=== PATIENT | male | born 1960 | race Caucasian/White ===

== ENCOUNTER 2021-04-08 00:12 | Day surgery (SDC) | payer OTHER, SELFPAY ==
[2021-03-28 10:36] VITALS: BMI 40.7
[2021-04-08 09:15] VITALS: BP 131/81; PULSE 64; RESP 18; TEMP 36.4; O2SAT 99; BMI 38.8
--- NOTE | 2021-04-08 09:38 | P.PNAN_ITS ---
Anes - Initial Pre Proc Eval Procedure: Operation Date: 04/08/21 10:30 Proposed Procedures p Screening Colonoscopy - Shree Aly MD Date/Time: 04/08/21 09:38 Surgeon: Shree Aly MD Pre Op Diagnosis: neoplasm screening Patient Data Age: 60 Gender: M Height: 1.83 m Weight: 129.9 kg Last Vital Signs Temp 36.4 C L 04/08/21 09:15 Pulse 64 04/08/21 09:15 Resp 18 04/08/21 09:15 BP 131/81 04/08/21 09:15 Pulse Ox 99 04/08/21 09:15 Allergies Allergy/AdvReac Type Severity Reaction Status Date / Time Penicillins Allergy Unknown Unknown Verified 04/08/21 09:21 Home Medications Medication Instructions Recorded Confirmed Type lysine 1,000 mg tablet 1,000 mg PO DAILY 03/30/19 04/08/21 History multivitamin 1 tablet PO DAILY 03/30/19 04/08/21 History omega-3 fatty acids 1,000 mg 1,000 mg PO DAILY 03/30/19 04/08/21 History capsule loratadine 10 mg tablet 10 mg PO DAILY 07/27/20 04/08/21 History omeprazole 20 mg capsule,delayed See Rx Instructions .ROUTE 01/03/21 04/08/21 Rx release .COMPLEX #90 cap lisinopril 20 mg tablet 20 mg PO DAILY #90 tablet 02/01/21 04/08/21 Rx hydrochlorothiazide 12.5 mg tablet 12.5 mg PO DAILY #90 tablet 03/04/21 04/08/21 Rx Patient hx anesthesia problems: none Family hx anesthesia problems: none Results Review: All pre-operative results and documents have been reviewed as part of the pre-operative evaluation. [facility] Past Medical History Medical History (Updated 07/27/20 @ 10:16 by Laura Reich NP) Allergies Chicken pox Deviated septum GERD (gastroesophageal reflux disease) Hypertension Mumps Family History Family History (Updated 03/29/19 @ 16:36 by Jamee Sanders CMA) Mother Diabetes mellitus Father Diabetes mellitus Social History Social History (Updated 05/16/19 @ 08:07 by Jamee Sanders CMA) Smoking status: Never smoker Tobacco type: cigars Additional smoking assessment comments: used to smoke cigars Alcohol intake: never Substance use: never Substance use type: does not use Living arrangements: with family Spiritual care concerns: No Anes - Eval Final PreProcedure Day of Procedure 04/08/21 09:38 Patient weight: obese Heart: regular rate and rhythm Lungs: clear to auscultation and normal air movement Airway: Mallampati scale class II Neurological: alert and oriented Last oral intake: >/= 8 hours ASA classification: III Emergent: no Anesthetic plan: proceed Anesthesia type and monitoring: general GIVS Results Review: All pre-operative results and documents have been reviewed as part of the pre-operative evaluation. Informed Consent: The patient's anesthetic plan and its attendant risks and benefits were discussed with the patient/family/POA. Questions were solicited and answers provided to the satisfaction of the patient/family/POA.
[2021-04-08] MEDS: LACTATED RINGERS 1,000 ML 150 ML IV CONT (09:39)
--- NOTE | 2021-04-08 09:51 | PM.HPGS ---
History of Present Illness History of Present Illness Consent: Risks, benefits, and alternatives have been discussed and questions answered. Patient agrees to proceed with procedure. Chief complaint: neoplasm screening Narrative: Ron Monique Jr. is a 60 year old male here for screening colonoscopy Review of Systems Constitutional: Constitutional: Denies headache(s) and Denies weakness Eyes: Eyes: Denies blurry vision ENT: Reports Normal hearing present, Denies headache(s) and Denies neck pain Cardiovascular: Cardiovascular: Denies chest pain and Denies dyspnea Respiratory: Respiratory: Denies dyspnea Gastrointestinal: Gastrointestinal: Reports no additional gastrointestinal complaints Genitourinary: Genitourinary: Denies dysuria Musculoskeletal: Musculoskeletal: Denies neck pain Integumentary/Breasts: Skin/Breast: Denies dry skin Neurologic: Reports Normal hearing present, Denies headache(s) and Denies weakness Psychiatric: Psychiatric: Denies anxiety Endocrine: Endocrine: Denies change in body appearance Hematologic/Lymphatic: Hematologic/Lymphatic: Denies easy bleeding Allergic/Immunologic: Allergic/Immunologic: Denies urticaria PMFSH Past Medical History Medical History (Updated 07/27/20 @ 10:16 by Laura Reich NP) Allergies Chicken pox Deviated septum GERD (gastroesophageal reflux disease) Hypertension Mumps Family History Family History (Updated 03/29/19 @ 16:36 by Jamee Sanders CMA) Mother Diabetes mellitus Father Diabetes mellitus Social History Social History (Updated 05/16/19 @ 08:07 by Jamee Sanders HAND I TUBE BENDER) Smoking status: Never smoker Tobacco type: cigars Additional smoking assessment comments: used to smoke cigars Alcohol intake: never Substance use: never Substance use type: does not use Living arrangements: with family Spiritual care concerns: No Meds Home Medications and Allergies Home Medications Medication Instructions Recorded Confirmed Type lysine 1,000 mg tablet 1,000 mg PO DAILY 03/30/19 04/08/21 History multivitamin 1 tablet PO DAILY 03/30/19 04/08/21 History omega-3 fatty acids 1,000 mg 1,000 mg PO DAILY 03/30/19 04/08/21 History capsule loratadine 10 mg tablet 10 mg PO DAILY 07/27/20 04/08/21 History omeprazole 20 mg capsule,delayed See Rx Instructions .ROUTE 01/03/21 04/08/21 Rx release .COMPLEX #90 cap lisinopril 20 mg tablet 20 mg PO DAILY #90 tablet 02/01/21 04/08/21 Rx hydrochlorothiazide 12.5 mg tablet 12.5 mg PO DAILY #90 tablet 03/04/21 04/08/21 Rx Allergies Allergy/AdvReac Type Severity Reaction Status Date / Time Penicillins Allergy Unknown Unknown Verified 04/08/21 09:21 Vital Signs Vital Signs - 24 hr 04/08/21 09:15 Temperature 97.5 F L Pulse Rate 64 Respiratory Rate 18 Blood Pressure 131/81 Pulse Oximetry 99 Exam Const: General: comfortable and no acute distress HENMT: General nose exam: Normal nares present Eyes: General: appearance normal, both eyes and all related structures Neck: Neck: no JVD Resp: Auscultation: clear to auscultation bilaterally Cardio: Rate: regular rate Rhythm: regular rhythm GI: Inspection: non-distended GI Palp: Yes Soft to palpation Skin: General skin exam: normal color Neuro: General: gait normal Speech: normal speech Extrem: General: normal to inspection Psych: Mental Status: mental status grossly normal Assessment and Plan Assessment and plan (1) Screening for colon cancer: Code(s): Z12.11 - Encounter for screening for malignant neoplasm of colon Status: Acute Assessment and Plan: colonoscopy
[2021-04-08 10:13] VITALS: BP 120/79; PULSE 62; RESP 15; O2SAT 96
[2021-04-08 10:23] VITALS: BP 126/82; PULSE 60; RESP 17; O2SAT 100
[2021-04-08 10:33] VITALS: BP 131/84; PULSE 58; RESP 14; O2SAT 100
== END 2021-04-08 10:50 | disposition home or self-care (01) ==
PROVIDERS: PCP Internal Medicine; Visit Provider Internal Medicine Gastroenterology
PROC: 0DJD8ZZ Inspection of Lower Intestinal Tract, Via Natural or Artificial Opening Endoscopic (ICD-10-PCS; CPT 45378; principal; 2021-04-08 10:30)
DX: Z12.11 Encounter for screening for malignant neoplasm of colon (principal); K64.8 Other hemorrhoids; D12.0 Benign neoplasm of cecum; K21.9 Gastro-esophageal reflux disease without esophagitis; I10 Essential (primary) hypertension; J34.2 Deviated nasal septum; E66.9 Obesity, unspecified; Z68.38 Body mass index [BMI] 38.0-38.9, adult
CPT/HCPCS: 45385; 88305; J2704; J7120

== ENCOUNTER 2021-07-27 09:06 | Outpatient (CLI) | payer OTHER, SELFPAY ==
--- NOTE | ~2021-07-27 | MR_ITS ---
EXAMINATION: MR hand RT wo con DATE: 07/27/2021 10:20 INDICATION: Effusion, unspecified, hand TECHNIQUE: Magnetic resonance imaging (MRI) of the right hand was performed without intravenous contr ast to include the metacarpals and digits. Sequences included sagittal, coronal, and axial proton-den sity weighted fast spin echo without and with fat saturation. COMPARISON: None FINDINGS: The bone marrow signal is benign and homogenous. Joint spaces are maintained without signif icant joint fluid. The flexor and extensor tendons are intact and normal in appearance. No abnormalit y detected in the carpal tunnel. Regional soft tissues are normal. IMPRESSION: 1. Normal right hand MR findings. Reviewed, dictated and finalized at location K.
== END 2021-07-27 09:07 | disposition home or self-care (01) ==
PROVIDERS: PCP Internal Medicine; Visit Provider Clinical Nurse Specialist
DX: M25.449 Effusion, unspecified hand (principal); M79.10 Myalgia, unspecified site
CPT/HCPCS: 73218

== ENCOUNTER → 2022-03-26 11:23 | Outpatient (CLI) | payer OTHER, SELFPAY ==
--- NOTE | ~2022-03-26 | US_ITS ---
EXAMINATION: US venous doppler [facility] DATE: 03/26/2022 11:50 INDICATION: Left lower limb swelling TECHNIQUE: Grayscale ultrasound images without and with compression and Doppler ultrasound images of the left lower extremity veins were obtained. COMPARISON: None. FINDINGS: The visualized portions of left common femoral vein, profunda (deep) femoral vein, femoral vein, popl iteal vein, peroneal veins, posterior tibial veins, gastrocnemius vein and greater saphenous vein out flow are patent. IMPRESSION: 1. No deep venous thrombosis in the left lower limb. Reviewed, dictated and finalized at location A. RVISOR PRE WAVE
== END ==
PROVIDERS: PCP Clinical Nurse Specialist; Visit Provider Clinical Nurse Specialist
DX: M79.89 Other specified soft tissue disorders (principal)
CPT/HCPCS: 93971

== ENCOUNTER 2023-05-14 07:57 | Outpatient (CLI) | payer OTHER, SELFPAY ==
[2023-05-14 12:20] LABS: Basophils Absolute Auto 0.1 K/mm3 (0.0-0.1); Basophils Percent Auto 0.7 % (0.2-1.2); Eosinophils Absolute Auto 0.2 K/mm3 (0-0.3); Eosinophils Percent Auto 2.8 % (0-4.4); Hemoglobin 14.6 g/dL (14.0-18.0); Immature Granulocyte Absolute 0.02 K/mm3 (0.00-0.031); Immature Granulocyte Percent A 0.3 % (0-0.5); Lymphocytes Absolute Auto 1.23 K/mm3 (0.9-3.2); Mean Corpuscular HGB Conc 31.7 g/dl (32-36); Mean Corpuscular Hemoglobin 30.5 pg (26-34); Mean Corpuscular Volume 96.2 fl (80-100); Mean Platelet Volume 11.5 fl (7.4-10.4); Monocytes Absolute Auto 0.8 K/mm3 (0.1-0.6); Monocytes Percent Auto 10.8 % (2.6-8.5); Neutrophils Percent Auto 68.4 % (45.5-73.1); Platelet Count Result 189 k/mm3 (150-375); Red Blood Count 4.78 M/mm3 (4.6-6.20); Red Cell Distribution Width 12.6 % (11.5-14.5); White Blood Count 7.3 K/mm3 (4.5-10.0)
[2023-05-14 12:40] LABS: Alanine Aminotransferase 32 U/L (6-50); Albumin Level 4.3 g/dL (3.5-5.1); Alkaline Phosphatase 99 U/L (38-126); Anion Gap 6 mmol/L (8-16); Aspartate Amino Transferase 41 U/L (17-59); Blood Urea Nitrogen 23 mg/dL (9-20); Calcium 9.5 mg/dL (8.4-10.2); Carbon Dioxide 30 mmol/L (22-30); Chloride 104 mmol/L (98-107); Cholesterol 158 mg/dL (0-200); Estimated Glomerular Filt Rate > 60; Glucose 91 mg/dL (65-110); HDL Direct 31 mg/dL; Potassium 4.4 mmol/L (3.4-5.0); Sodium 140 mmol/L (137-145); Triglycerides 148 mg/dL (<150)
[2023-05-14 12:52] LABS: LDL Cholesterol Direct 96 mg/dL
[2023-05-14 13:09] LABS: Prostate Specific Antigen 0.9 ng/mL (< OR = 4.0)
== END 2023-05-14 07:58 | disposition home or self-care (01) ==
LOC: ANHGOSHLAB 07:59
PROVIDERS: PCP Internal Medicine; Visit Provider Nurse Practitioner
DX: I10 Essential (primary) hypertension (principal); Z12.5 Encounter for screening for malignant neoplasm of prostate
CPT/HCPCS: 36415; 80053; 80061; 84153; 85025; G0103

== ENCOUNTER 2023-11-20 07:54 | Outpatient (CLI) | payer OTHER, SELFPAY ==
[2023-11-20 15:19] LABS: Anion Gap 9 mmol/L (4-12); Blood Urea Nitrogen 26 mg/dL (9-20); Calcium 9.4 mg/dL (8.4-10.2); Carbon Dioxide 29 mmol/L (22-30); Chloride 101 mmol/L (98-107); Estimated Glomerular Filt Rate > 60; Glucose 98 mg/dL (65-110); Potassium 4.9 mmol/L (3.4-5.0); Sodium 139 mmol/L (137-145)
== END 2023-11-20 07:55 | disposition home or self-care (01) ==
LOC: ANHGOSHLAB 07:55
PROVIDERS: PCP Internal Medicine; Visit Provider Nurse Practitioner
DX: R73.03 Prediabetes (principal)
CPT/HCPCS: 36415; 80048; 83036

== ENCOUNTER 2024-05-30 08:24 | Outpatient (CLI) | payer OTHER, SELFPAY ==
--- OUTSIDE RECORDS SUMMARY | 2024-05-30 08:50 | XMS_ITS | Continuity of Care Document ---
Author Organization [facility] Address [address] [place] [address] [address] [place] [address] Phone Care Team Providers Care Pavilion Cutter Name Role Phone Elise Arredondo Unavailable Unavailable Advance Directives Directive Yes / No Effective Date File Name No Information Encounters Encounter Description Practice Location Reason(s) For Visit Diagnoses Date Provider Providers Copied on Encounter [facility], [address], [place], [place], [id number], [place] tel:[phone] [facility] No Information [address] Olivares. [address] , [address], [place], [address], [place]. tel:[phone] Family History Family Member Type Diagnosis Age At Onset No Information Payers Payer name Insurance type Covered democrat ID Authoriza tion(s) No Information Social History Type Description Quantity Date Captured Comments Sex Male Smoking Status No Information Chief Complaint And Reason For Visit No Information Reason For Referral Reason For Referral No Information History Of Present Illness Encounter Date Complaint History Of Prese nt Illness No Information Functional Status Date Functional Assessmen t No Information Instructions Date Instruction Additional Infor mation No Information Assessments Type Assessment Date No Information Patient Care Teams Name Effective Dates (start - stop) Status Members No Information
--- OUTSIDE RECORDS SUMMARY | 2024-05-30 08:50 | XMS_ITS | Referral Summary ---
Author Organization [facility] Address [address] [place] [id number] Care Team Providers Care Quill Cleaner Name Role Phone Jasiel Yap DO Primary Care Provider [phone] Allergies Active Allergy Reactions Criticality Noted Date Comments Penicillin G Hives,Rash Medium 08/06/2022 Medications omeprazole (PriLOSEC) 20 mg capsule 08/06/2022 Active lisinopriL (PRINIVIL,ZESTR IL) 20 mg tablet Take 1 tablet (20 mg total) by mouth daily 04/30/2022 Active hydroCHLOROthia zide (HYDRODIURIL) 12.5 mg tablet Take 1 tablet (12.5 mg total) by mouth daily Active ergocalciferol (VITAMIN D) 50,000 unit capsule Take 1 capsule (50,000 Units total) by mouth once a week 8 capsule 08/08/2022 Active Active Problems No known active problems Social History Tobacco Use Types Packs/Day Years Used Date Smoking Tobacco: Never Smokeless Tobacco: Never Tobacco Cessation:Counseling Given: Not Answered AUDIT-C Answer Date Recorded Q1: How often do you have a drink containing alcohol? Never 08/06/2022 Q2: How many drinks containi ng alcohol do you have on a typical day when you are drinking? Patient does not drink Q3: How often do you have si x or more drinks on one occasion? Never 08/06/2022 Personal Safety Answer Date Recorded Getting School Help Needed Not on file 03/19 Sex and Gender Information Value Date Recorded Sex Assigned at Not on file Legal Sex Male 2:20 AM [employer] Gender Identity Not on file Sexual Orientation Not on file Last Filed Vital Signs Vital Sign Reading Time Taken Comments Blood Pressure 130/80 08/06/2022 8:07 AM CDT Pulse 61 08/06/2022 8:07 AM CDT Temperature 36.4 C (97.6 F) 08/06/2022 8:07 AM CDT Respiratory Rate - - Oxygen Saturation - - Inhaled Oxygen Concentration - - Weight 129.7 kg (286 lb) 08/06/2022 8:07 AM CDT Height 182.9 cm (6') 08/06/2022 8:07 AM CDT Body Mass Index 38.79 08/06/2022 8:07 AM CDT Plan of Treatment Not on file Insurance [place] [id number] Care Teams Quill Cleaner Relationship Specialty Start Date End Date Jasiel Yap DO PCP - General 05/21/11
--- OUTSIDE RECORDS SUMMARY | 2024-05-30 08:50 | XMS_ITS | Clinical Summary ---
Author Organization [facility] Address [address] [place] [id number] Care Team Providers Care Sewer Connector Name Role Phone Jasiel Yap DO Primary Care Provider [phone] Allergies Active Allergy Reactions Criticality Noted Date [...] Active Active Problems No known active problems Medical History Medical History Date Comments Hypertension Pre-diabetes Family History Medical History Relation Name Comments Diabetes Father Hypertension Father Parkinsonism Father Heart failure Mother Relation Name Status Comments Father Mother Social History Tobacco Use Types Packs/Day Years [...] on file 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 Gender Identity Not on file Sexual Orientation Not on file Obstetrics History Last Filed Vital Signs Vital Sign Reading [...] 08/06/2022 8:07 AM CDT Plan of Treatment Health Maintenance Due Date Last Done Comments Colon Cancer Screening-Colonoscopy 1960 Depression Screening 1960 Hepatitis C Screening 1960 Prostate Cancer Screening-PSA 1959 DTaP/Tdap/Td Vaccine (1 - Tdap) 10/21/1970 Hepatitis B Screening 10/21/1977 Regular Well Visit/Exam 18-64 10/21/1977 Zoster Vaccine (1 of 2) 10/21/2009 Covid-19 Vaccine ( season) 2023 12/24/2021, 02/15/2021, 07/17/2020, Additional history exists Influenza Vaccine (#1) 2023 , 12/23/2020, 12/24/2014 Pneumococcal vaccine <65 Aged Out No longer eligible based on patient's age to complete this topic Insurance CHOICE PLUS Care Teams Sewer Connector Relationship Specialty Start Date End Date Jasiel Yap DO PCP - General 05/21/11
[2024-05-30 14:00] LABS: Basophils Percent Auto 0.5 % (0.2-1.2); Eosinophils Absolute Auto 0.1 K/mm3 (0-0.3); Eosinophils Percent Auto 1.8 % (0-4.4); Hematocrit 45.4 % (42.0-52.0); Hemoglobin 14.5 g/dL (14.0-18.0); Immature Granulocyte Absolute 0.02 K/mm3 (0.00-0.031); Immature Granulocyte Percent A 0.3 % (0-0.5); Lymphocytes Absolute Auto 1.08 K/mm3 (0.9-3.2); Lymphocytes Percent Auto 16.5 % (18.3-44.2); Mean Corpuscular HGB Conc 31.9 g/dl (32-36); Mean Corpuscular Hemoglobin 30.8 pg (26-34); Mean Corpuscular Volume 96.4 fl (80-100); Mean Platelet Volume 11.5 fl (7.4-10.4); Monocytes Absolute Auto 0.6 K/mm3 (0.1-0.6); Monocytes Percent Auto 9.8 % (2.6-8.5); Neutrophils Absolute Auto 4.7 K/mm3 (1.3-6.7); Neutrophils Percent Auto 71.1 % (45.5-73.1); Platelet Count Result 188 k/mm3 (150-375); Red Blood Count 4.71 M/mm3 (4.6-6.20); Red Cell Distribution Width 12.7 % (11.5-14.5); White Blood Count 6.6 K/mm3 (4.5-10.0)
[2024-05-30 15:18] LABS: Alanine Aminotransferase 28 U/L (6-50); Albumin Level 4.3 g/dL (3.5-5.1); Alkaline Phosphatase 111 U/L (38-126); Anion Gap 9 mmol/L (4-12); Aspartate Amino Transferase 33 U/L (17-59); Bilirubin,Total 0.6 mg/dL (0.2-1.3); Blood Urea Nitrogen 28 mg/dL (9-20); Calcium 9.2 mg/dL (8.4-10.2); Carbon Dioxide 29 mmol/L (22-30); Chloride 104 mmol/L (98-107); Cholesterol 156 mg/dL (0-200); Estimated Glomerular Filt Rate > 60; Glucose 92 mg/dL (65-110); HDL Direct 33 mg/dL; Potassium 4.2 mmol/L (3.4-5.0); Sodium 142 mmol/L (137-145); Triglycerides 135 mg/dL (<150)
[2024-05-30 15:29] LABS: LDL Cholesterol Direct 82 mg/dL
[2024-05-30 15:47] LABS: Prostate Specific Antigen 0.9 ng/mL (< OR = 4.0)
[2024-05-30 18:54] LABS: Hemoglobin A1C 5.9 % (<5.7)
== END 2024-05-30 08:25 | disposition home or self-care (01) ==
PROVIDERS: PCP Internal Medicine; Visit Provider Nurse Practitioner
DX: I10 Essential (primary) hypertension (principal); R73.03 Prediabetes; Z12.5 Encounter for screening for malignant neoplasm of prostate
CPT/HCPCS: 36415; 80053; 80061; 83036; 84153; 85025; G0103

== ENCOUNTER 2024-07-22 14:03 | Emergency (ER) | payer OTHER, SELFPAY ==
--- NOTE | ~2024-07-22 | XR_ITS ---
XR finger 2nd LT min 2V Ordering provider: Nga Villalobos NP History: . Lt 2nd finger swollen with some warmth x 1 wk; no injury . Comparison: September 15, 2017 FINDINGS: BONES: No acute fracture or dislocation. JOINT SPACES: Osteoarthritic changes of the distal interphalangeal joint which is not progressed comp ared to previous study. SOFT TISSUES: Soft tissue swelling is noted. IMPRESSION: No acute osseous abnormality. Severe osteoarthritic changes of the distal interphalangeal joint. Soft tissue swelling which may indicate cellulitis. Clinical correlation advised. Reviewed, dictated and finalized at location A. IMPRESSION: No acute osseous abnormality. Severe osteoarthritic changes of the distal interphalangeal joint. Soft tissue swelling which may indicate cellulitis. Clinical correlation advise delfin
[2024-07-22 14:14] VITALS: BP 120/66; PULSE 76; RESP 16; TEMP 36.3; O2SAT 97
--- NOTE | 2024-07-22 15:02 | ED.EXTPRO ---
HPI - Extremity Problem General Chief complaint: Extremity Problem,Nontraumatic Stated complaint: SWOLLEN FINGER Time Seen by Provider: 07/22/24 14:50 Source: patient, RN notes reviewed and old records reviewed Mode of arrival: ambulatory Limitations: no limitations History of Present Illness HPI Narrative: 63 year old male presents to [facility] care with complaints of left index finger swelling since Thursday. Patient reports that he was seen at [facility] on Thursday and was given an antibiotic and also treated with Naproxen. Patient reports that he has been taking the medication as prescribed and he is able to bend his finger better but swelling has not decreased. Patient reports no injury to his finger, states history of arthritis. Patient reports that they were unable to x-ray his finger. MD Complaint: extremity swelling (left index) Onset (ago): day(s) (6 days) Location: left and other (finger) Severity scale (1-10): 2 Quality: aching Exacerbating factors: range of motion Related Data Home Medications ?Medication ?Instructions ?Recorded ?Confirmed ?Last Taken ?Type multivitamin 1 tablet PO DAILY 03/30/19 07/22/24 Unknown History omega-3 fatty acids 1,000 mg 1,000 mg PO DAILY 03/30/19 07/22/24 Unknown History capsule (Fish Oil Concentrate) cephalexin 500 mg capsule 500 mg PO Q8H 07/22/24 07/22/24 Unknown History naproxen 500 mg tablet 500 mg PO Q12H 07/22/24 07/22/24 Unknown History Allergies Allergy/AdvReac Type Severity Reaction Status Date / Time Penicillins Allergy Unknown Unknown Verified 07/22/24 14:09 Review of Systems Review of Systems: CONSTITUTIONAL: Denies fever, chills, or sweats. EYES: Denies visual changes, redness, or discharge. ENT: Denies rhinorrhea, congestion, sore throat, or otalgia. CARDIOVASCULAR: Denies chest pain, palpitations, or edema. RESPIRATORY: Denies cough or dyspnea. GASTROINTESTINAL: Denies abdominal pain, nausea, vomiting, or diarrhea. GENITOURINARY: Denies dysuria or hematuria. SKIN: Denies rash or itching. MUSCULOSKELETAL: Denies back pain,positive for left index finger swelling, joint pain, or myalgia. NEUROLOGIC: Denies headache, numbness, or weakness. PSYCHIATRIC: Denies anxiety or depression. All systems reviewed & are unremarkable except as noted in HPI and below PMFSH Past Medical History Medical History (Updated 07/25/24 @ 10:21 by Nga Villalobos NP) Dysphagia Deviated septum Allergies Chicken pox GERD (gastroesophageal reflux disease) Mumps Hypertension Surgical History Surgical History (Updated 07/25/24 @ 10:22 by Nga Villalobos NP) Hx of tonsillectomy History of cholecystectomy Family History Family History Mother Diabetes mellitus Father Diabetes mellitus Father Family history of congestive heart failure Diabetes mellitus Mother Diabetes mellitus Social History Social History Social History: Caffeine-coffee/soda Smoking status: Never smoker Additional smoking assessment comments: used to smoke cigars Alcohol intake: never Substance use: never Substance use type: does not use Current Housing: Decline to Answer Concerned About Future Housing: Decline to Answer Difficulty Paying Gas/Electric Bills: Decline to Answer Difficulty Paying for Meds: Decline to Answer Currently Unemployed: Decline to Answer Education: Decline to Answer Difficulty w/ Childcare or Family Care: Decline to Answer Living arrangements: with family Spiritual care concerns: No Comments At time of signature, agree with nursing past medical, surgical, social and family history. There is no relevant family history pertinent to the presenting complaint Exam Narrative: GENERAL: Well-appearing, well-nourished, and in no acute distress. HEAD: Normocephalic, atraumatic. EYES: PERRLA and EOMI. ENT: Nares clear, no rhinorrhea or epistaxis. Mucous membranes moist. NECK: Supple.no lymphadenopathy CHEST: Clear to auscultation. No respiratory distress. SAO2 97% HEART: Regular rate and rhythm. No murmur heard. Normal peripheral pulses. ABDOMEN: Soft, nontender, nondistended, normal active bowel sounds. EXTREMITIES: Normal range of motion. No edema.Exception noted to left index finger which is swollen but is able to bend finger better today, no obvious deformity, reports that he does have history of arthritis SKIN: Warm, dry, no rash. NEURO: No focal deficits. Alert and oriented x3. Course Course Emergency Course: Patient is aware of diagnosis, understands and agrees to treatment plan.? Anticipatory guidance given.? Patient agrees to follow-up as directed and is aware of reasons to seek care at the emergency department. Portions of this record may have been created with voice recognition software Level of Care: Express Care Visit Vital Signs Vital signs: Vital Signs Temperature 36.3 C L 07/22/24 14:14 Pulse Rate 76 07/22/24 14:14 Respiratory Rate 16 07/22/24 14:14 Blood Pressure 120/66 07/22/24 14:14 Pulse Oximetry 97 07/22/24 14:14 Temperature 36.3 C L 07/22/24 14:14 Pulse Rate 76 07/22/24 14:14 Respiratory Rate 16 07/22/24 14:14 Blood Pressure 120/66 07/22/24 14:14 Pulse Oximetry 97 07/22/24 14:14 Reviewed Critical Care Time Critical Care Time Critical Care Time: No Discharge Plan Discharge Clinical Impression: Osteoarthritis of left index finger, Swelling of left index finger Patient Disposition: Home Condition: Stable Instructions: Osteoarthritis (ED), Swollen Joint (ED) Additional Instructions: Tylenol for lesser pain Ibuprofen regularly for the next 2-3 days for the inflammation Follow-up with hand surgeon or orthopedic surgeon if continued problems Follow-up with PCP if further problems or concerns Ice to the area 20-30 minutes 4-6 times a day Elevate above heart If your symptoms persist, change or worsen significantly before you can contact your personal physician then please, without delay, go to the emergency department for further evaluation. Follow-up with PCP in 7-10 days or sooner if needed Complete all doses of antibiotic Patient Language: Croatian Prescriptions: No Action cephalexin 500 mg capsule 500 mg PO Q8H naproxen 500 mg tablet 500 mg PO Q12H omega-3 fatty acids [Fish Oil Concentrate] 1,000 mg capsule 1,000 mg PO DAILY multivitamin Tablet 1 tablet PO DAILY hydrochlorothiazide 12.5 mg tablet See Rx Instructions .ROUTE .COMPLEX Qty: 90 1RF Dose Instruction: TAKE 1 TABLET BY MOUTH EVERY DAY Rx Instructions: TAKE 1 TABLET BY MOUTH EVERY DAY lisinopril 20 mg tablet See Rx Instructions .ROUTE .COMPLEX Qty: 90 1RF Dose Instruction: TAKE 1 TABLET BY MOUTH EVERY DAY Rx Instructions: TAKE 1 TABLET BY MOUTH EVERY DAY omeprazole 20 mg capsule,delayed release(DR/EC) See Rx Instructions .ROUTE .COMPLEX Qty: 90 1RF Dose Instruction: TAKE 1 CAPSULE BY MOUTH EVERY DAY Rx Instructions: TAKE 1 CAPSULE BY MOUTH EVERY DAY Follow-up/Referrals: Laura Reich LOGISTICS AND PLANNING MANAGER [Primary Care Provider] - Time of Disposition: 15:38 Quality Markos Coma Scale Eyes: Open Verbal: Oriented and Alert Motor: Follows Commands Markos Coma Total Score: 15
== END 2024-07-22 15:40 | disposition home or self-care (01) ==
PROVIDERS: Emergency Provider Registered Nurse; PCP Nurse Practitioner
DX: M19.042 Primary osteoarthritis, left hand (principal); R22.32 Localized swelling, mass and lump, left upper limb; I10 Essential (primary) hypertension; K21.9 Gastro-esophageal reflux disease without esophagitis
CPT/HCPCS: 73140; 99213; G0463

== ENCOUNTER 2024-10-17 11:45 | Emergency (ER) | payer OTHER, SELFPAY ==
[2024-10-17 11:54] VITALS: BP 125/69; PULSE 76; RESP 20; TEMP 36.5; O2SAT 98
--- NOTE | 2024-10-17 12:39 | ED.EXTPRO ---
HPI - Extremity Problem General Chief complaint: Extremity Problem,Nontraumatic Stated complaint: R Foot Pain Time Seen by Provider: 10/17/24 12:40 Source: patient, RN notes reviewed and old records reviewed Mode of arrival: ambulatory Limitations: no limitations History of Present Illness HPI Narrative: 63-year-old male presents to the [facility] with right foot pain since Thursday. Patient did a lot of standing. Had taken Aleve and Voltaren, both have which helped. Reports had some swelling to the foot yesterday, applied ice which helped. Related Data Home Medications ?Medication ?Instructions ?Recorded ?Confirmed ?Last Taken ?Type multivitamin 1 tablet PO DAILY 03/30/19 07/22/24 Unknown History omega-3 fatty acids 1,000 mg 1,000 mg PO DAILY 03/30/19 07/22/24 Unknown History capsule (Fish Oil Concentrate) cephalexin 500 mg capsule 500 mg PO Q8H 07/22/24 07/22/24 Unknown History naproxen 500 mg tablet 500 mg PO Q12H 07/22/24 07/22/24 Unknown History Allergies Allergy/AdvReac Type Severity Reaction Status Date / Time Penicillins Allergy Unknown Unknown Verified 07/22/24 14:09 Review of Systems Review of Systems: All systems reviewed & are unremarkable except as noted in HPI and below Constitutional: Constitutional: Reports no additional constitutional complaints ENT: Reports system reviewed and no additional complaints, except as documented Cardiovascular: Cardiovascular: Reports no additional cardiovascular complaints, Denies chest pain and Denies dyspnea Respiratory: Respiratory: Reports no additional respiratory complaints, Denies chest congestion, Denies cough and Denies dyspnea Musculoskeletal: Musculoskeletal: Reports as per HPI Integumentary/Breasts: Skin/Breast: Reports system reviewed and no additional complaints, except as docu PMFSH Past Medical History Medical History Dysphagia Deviated septum Allergies Chicken pox GERD (gastroesophageal reflux disease) Mumps Hypertension Surgical History Surgical History Hx of tonsillectomy History of cholecystectomy Family History Family History Mother Diabetes mellitus Father Diabetes mellitus Father Family history of congestive heart failure Diabetes mellitus Mother Diabetes mellitus Social History Social History Social History: Caffeine-coffee/soda Smoking status: Never smoker Additional smoking assessment comments: used to smoke cigars Alcohol intake: never Substance use: never Substance use type: does not use Current Housing: Decline to Answer Concerned About Future Housing: Decline to Answer Difficulty Paying Gas/Electric Bills: Decline to Answer Difficulty Paying for Meds: Decline to Answer Currently Unemployed: Decline to Answer Education: Decline to Answer Difficulty w/ Childcare or Family Care: Decline to Answer Living arrangements: with family Spiritual care concerns: No Comments At the time of my signature, I reviewed and agree with the nursing past medical, surgical, social, and family history. There is no relevant family history pertinent to the patient complaint. Exam Const: General: cooperative, healthy appearing, comfortable, no acute distress, well developed, alert and well nourished Nutritional Appearance: well nourished Orientation/consciousness: patient oriented x3 Limitations: no limitations HENMT: Head: normal to inspection Eyes: General: appearance normal, both eyes and all related structures Alignment and Position: alignment normal Neck: Neck: normal visual inspection, full ROM, no lymphadenopathy and no meningeal signs Chest: Chest palpation & inspection: normal inspection of the chest Resp: Effort & Inspection: normal respiratory effort and able to speak in complete sentences Cardio: Rate: regular rate Skin: General skin exam: normal color and no rashes or lesions noted Neuro: General: patient oriented x3, gait normal, moves all extremities and no meningeal signs Cognition (Neuro): normal cognition Speech: normal speech Gait exam (Neuro): Normal gait present Extrem: General: normal to inspection, full ROM, capillary refill normal and normal gait Right lower extremity: foot Details: normal capillary refill, tenderness Location: of the dorsal foot, toes with normal ROM, no edema and vascular exam Details: dorsalis pedis pulse present and normal capillary refill; no abrasion, no laceration, no ecchymosis, no crepitus, no foreign bodies and no puncture wound Psych: Appearance: grossly normal and well kempt Mental Status: mental status grossly normal Speech and movement: Normal speech and movement present and Clear speech present Affect: normal affect Attitude: cooperative Course Course Level of Care: Express Care Visit Vital Signs Vital signs: Vital Signs Temperature 97.7 F 10/17/24 11:54 Pulse Rate 76 10/17/24 11:54 Respiratory Rate 20 10/17/24 11:54 Blood Pressure 125/69 10/17/24 11:54 Pulse Oximetry 98 10/17/24 11:54 Oxygen Delivery Room Air 10/17/24 11:54 Temperature 97.7 F 10/17/24 11:54 Pulse Rate 76 10/17/24 11:54 Respiratory Rate 20 10/17/24 11:54 Blood Pressure 125/69 10/17/24 11:54 Pulse Oximetry 98 10/17/24 11:54 Oxygen Delivery Room Air 10/17/24 11:54 Reviewed MDM - Extremity (Nontraumatic) MDM Narrative Medical decision making narrative: Patient presents with daughter with right foot pain since Thursday, reports improvement, swelling has decreased. Discussed doing an x-ray. No direct injury. Patient declined at this time. Discussed most likely findings are due to arthritis, continued [id number] treatment plan. Patient appropriate for outpatient treatment with close follow-up Requesting a 2 day work note Discharge instructions reviewed with patient, as well as provided in writing per nursing staff. The instructions also include specific and strict return/GO TO THE ER as well as f/u information. All questions have been answered, and the patient deny any further questions with discharge and discharge plan. Some parts of this dictation were generated by voice recognition software and may contain typographical and/or grammatical inaccuracies. Critical Care Time Critical Care Time Critical Care Time: No Discharge Plan Discharge Clinical Impression: Foot pain, right Patient Disposition: Home Condition: Stable Instructions: Antibiotic Form, Arthritis (ED), Flatfoot (DC) Additional Instructions: Apply ice or warm moist heat to the area, whichever feels better. You can do this 3 to 4 times a day for 20 minutes. Take Tylenol alternating with ibuprofen. Per package instructions Follow-up with your foot doctor for further evaluation Patient Language: Mohawk Prescriptions: No Action cephalexin 500 mg capsule 500 mg PO Q8H naproxen 500 mg tablet 500 mg PO Q12H omega-3 fatty acids [Fish Oil Concentrate] 1,000 mg capsule 1,000 mg PO DAILY multivitamin Tablet 1 tablet PO DAILY lisinopril 20 mg tablet See Rx Instructions .ROUTE .COMPLEX Qty: 90 1RF Dose Instruction: TAKE 1 TABLET BY MOUTH EVERY DAY Rx Instructions: TAKE 1 TABLET BY MOUTH EVERY DAY omeprazole 20 mg capsule,delayed release(DR/EC) See Rx Instructions .ROUTE .COMPLEX Qty: 90 1RF Dose Instruction: TAKE 1 CAPSULE BY MOUTH EVERY DAY Rx Instructions: TAKE 1 CAPSULE BY MOUTH EVERY DAY hydrochlorothiazide 12.5 mg tablet See Rx Instructions .ROUTE .COMPLEX Qty: 90 1RF Dose Instruction: TAKE 1 TABLET BY MOUTH EVERY DAY Rx Instructions: TAKE 1 TABLET BY MOUTH EVERY DAY Follow-up/Referrals: Jasiel Yap, [Primary Care Provider] - 2 Weeks ([facility] care follow up ) Stand Alone Forms: Work/School Release IP Time of Disposition: 12:53
== END 2024-10-17 12:55 | disposition home or self-care (01) ==
PROVIDERS: Emergency Provider Nurse Practitioner; PCP Internal Medicine
DX: M79.671 Pain in right foot (principal); Z87.891 Personal history of nicotine dependence; I10 Essential (primary) hypertension; K21.9 Gastro-esophageal reflux disease without esophagitis
CPT/HCPCS: 99212; G0463

== ENCOUNTER 2025-03-14 06:51 | Outpatient (CLI) | payer OTHER, SELFPAY ==
--- NOTE | 2025-03-14 | ECHO_ITS ---
Patient Info Name: Ron Monique Age: 64 years : 1960 Gender: Male Ht: 72 in Wt: 286 lbs BSA: 2.62 m2 HR: 54 bpm BP: 140 / 86 mmHg Heart Rhythm: Bradycardia Technical Quality: Fair Exam Date: 03/14/2025 7:57 AM Patient Status: O Admit Date: 03/14/2025 Exam Type: CA echo doppler color flow Complete two-dimensional, color flow and Doppler transthoracic echocardiogram is performed. Goldbeater: Kaycee Ly Attending Provider: Ivan Goldstein Summary 1. Complete two-dimensional, color flow and Doppler transthoracic echocardiogram is performed. 2. Left ventricular systolic function is normal, estimated at 50-55. 3. The left ventricular diastolic function is grade II diastolic dysfunction. 4. There is mild mitral valve regurgitation. 5. There is mild tricuspid valve regurgitation. 6. No pulmonary hypertension, estimated pulmonary arterial systolic pressure is 20 mmHg. 7. Technically difficult study. Poor endocardial definition and therefore cannot comment on wall motion abnormalities. IV contrast was not administered because of lack of authorization. Left Ventricle Left ventricular chamber dimension is normal. Left ventricular systolic function is normal, estimated at 50-55. There is no increased left ventricular wall thickness. Left ventricular septal wall motion is normal. The left ventricular diastolic function is grade II diastolic dysfunction. Right Ventricle Right ventricular chamber dimension is normal. Right ventricular systolic function is normal. Left Atria Left atrial chamber dimension is normal. Right Atria Right atrial chamber dimension is normal. Aortic Valve The aortic valve is trileaflet. There is no aortic valve sclerosis. There is no aortic valve stenosis. There is no aortic valve regurgitation. Pulmonic Valve The pulmonic valve is normal. There is no pulmonic valve stenosis. There is no pulmonic regurgitation. Mitral Valve The mitral valve has normal leaflets. There is no mitral valve stenosis. There is mild mitral valve regurgitation. Tricuspid Valve The tricuspid valve leaflets are normal. There is no significant tricuspid valve stenosis. There is mild tricuspid valve regurgitation. No pulmonary hypertension, estimated pulmonary arterial systolic pressure is 20 mmHg. Pericardium/Pleural The pericardium appears normal. There is no pericardial effusion. Inferior Vena Cava Normal inferior vena cava with >50% collapse upon inspiration consistent with normal right atrial pressure, 5 mmHg. Aorta The aortic root size at the sinus of Valsalva is normal. The prox ascending aorta size is normal. Left Ventricular Outflow Tract Name Value Normal LVOT 2D LVOT Diameter 2.0 cm LVOT Doppler LVOT Peak Velocity 94 cm/s LVOT Peak Gradient 4 mmHg LVOT Mean Gradient 2 mmHg LVOT VTI 23 cm LVOT VTI/AV VTI Ratio 0.7 LVOT Stroke Volume 75 ml LVOT CO 3.6 l/min LVOT CI 1.4 l/min/m2 Pulmonic Valve Name Value Normal RVOT Doppler RVOT Peak Velocity 64 cm/s RVOT Peak Gradient 2 mmHg PV Doppler PV Peak Velocity 109 cm/s PV Peak Gradient 5 mmHg Mitral Valve Name Value Normal MV Diastolic Function MV E Peak Velocity 106 cm/s MV A Peak Velocity 64 cm/s MV E/A 1.6 MV Decel Time (PW) 193 ms MV Annular TDI MV E/e' (Septal) 15.6 MV E/e' (Lateral) 14.2 MV E/e' (Average) 14.9 Tricuspid Valve Name Value Normal TV Regurgitation Doppler TR Peak Velocity 196 cm/s TR Peak Gradient 15 mmHg Estimated PAP/RSVP RA Pressure 5 mmHg <=5 PA Systolic Pressure 20 mmHg <36 RV Systolic Pressure 20 mmHg <36 TV Annular TDI TV Lateral Rosa s' Velocity 13.8 cm/s >=9.5 Aorta Name Value Normal Ascending Aorta Ao Root Diameter (MM) 3.5 cm Ao Root Diam Index (MM) 1.3 cm/m2 Aortic Valve Name Value Normal AV Doppler AV Peak Velocity 134 cm/s AV Peak Gradient 7 mmHg AV Mean Gradient 4 mmHg AV VTI 35 cm AV Area (Cont Eq VTI) 2.2 cm2 >=3.0 AV Area (Cont Eq Maxwell) 2.3 cm2 AV DI (Maxwell) 0.71 AV Regurgitation 2D LVOT Area 3.3 cm2 Ventricles Name Value Normal LV Dimensions 2D/MM IVS Diastolic Thickness (2D) 1.0 cm 0.6-1.0 LVID Diastole (2D) 5.9 cm 4.2-5.8 LVIW Diastolic Thickness (2D) 0.9 cm 0.6-1.0 LVID Systole (2D) 3.8 cm 2.5-4.0 LVOT Diameter 2.0 cm LV Mass (2D Cubed) 214.14 g 88.00-224.00 LV Mass Index (2D Cubed) 82 g/m2 49-115 Relative Wall Thickness (2D) 0.29 <=0.42 LV Fractional Shortening/Ejection Fraction 2D/MM LV Fractional Shortening (2D) 36 % 25-43 LV EF (2D Teichholz) 65 % LV Diastolic Volume (4C MOD) 91 ml LV EF (4C MOD) 58 % LV Diastolic Volume (2C MOD) 102 ml LV EF (2C MOD) 43 % LV Diastolic Volume (BP MOD) 103 ml 62-150 LV Diastolic Volume Index (BP MOD) 39 ml/m2 34-74 LV Systolic Volume (BP MOD) 49 ml 21-61 LV Systolic Volume Index (BP MOD) 19 ml/m2 11-31 LV EF (BP MOD) 53 % 52-72 LV Diastolic Length (4C) 7.9 cm LV Systolic Length (4C) 7.2 cm LV Stroke Volume (4C MOD) 53 ml Atria Name Value Normal LA Dimensions LA Dimension (MM) 4.7 cm 3.0-4.0 LA Volume (4C A-L) 77 ml LA Volume (BP A-L) 85 ml RA Dimensions RA Area (4C) 17.9 cm2 <=18.0 Report Signatures
== END 2025-03-14 06:52 | disposition home or self-care (01) ==
PROVIDERS: PCP Internal Medicine; Visit Provider Internal Medicine
DX: R93.1 Abnormal findings on diagnostic imaging of heart and coronary circulation (principal)
CPT/HCPCS: 93306